=== PATIENT | male | born 1985 | race Caucasian/White ===

== ENCOUNTER 2023-02-08 07:19 | Outpatient (CLI) | payer OTHER ==
[2023-02-08 12:44] LABS: BASOPHILS # (AUTO) 0.1 10^3/uL (0.0-0.1); BASOPHILS % (AUTO) 1.1 %; EOSINOPHILS # (AUTO) 0.3 10^3/uL (0.0-0.7); EOSINOPHILS % (AUTO) 3.6 %; HCT - HEMATOCRIT 42.5 % (42.0-52.0); HGB - HEMOGLOBIN 14.2 g/dL (14.0-18.0); LYMPHOCYTES # (AUTO) 2.1 10^3/uL (1.5-3.5); LYMPHOCYTES % (AUTO) 27.8 %; MEAN CORPUSCULAR HEMOGLOBIN 30.1 pg (27.0-31.0); MEAN CORPUSCULAR HGB CONC 33.4 g/dL (32.0-36.0); MEAN CORPUSCULAR VOLUME 90.2 fL (80.0-94.0); MONOCYTES # (AUTO) 0.7 10^3/uL (0.0-1.0); MONOCYTES % (AUTO) 9.3 %; NEUTROPHILS # (AUTO) 4.4 10^3/uL (1.5-6.6); NEUTROPHILS % (AUTO) 58.1 %; PLT - PLATELET COUNT 304 10^3/uL (130-450); RED BLOOD COUNT 4.71 10^6/uL (4.70-6.10); RED CELL DISTRIBUTION WIDTH 11.8 % (12.0-15.0); WHITE BLOOD COUNT 7.6 x10^3/uL (4.8-10.8)
[2023-02-08 13:26] LABS: % IRON SATURATION 31 % (20-50); ALBUMIN/GLOBULIN RATIO 1.9 (1.0-2.2); ALKALINE PHOSPHATASE 53 IU/L (42-121); ALT ALANINE AMINOTRANSFERASE 12 IU/L (10-60); AST ASPARTATE AMINOTRANSFERASE 18 IU/L (10-42); BILIRUBIN,TOTAL 0.7 mg/dL (0.2-1.0); BUN - BLOOD UREA NITROGEN 16 mg/dL (6-20); CALCIUM 10.1 mg/dL (8.5-10.3); CARBON DIOXIDE - CO2 30 mmol/L (21-32); CHLORIDE 102 mmol/L (101-111); CHOL/HDL RATIO 2.7 (<5.0); CHOLESTEROL 178 mg/dL; CREATININE 0.9 mg/dL (0.6-1.3); GFR - MDRD 95 (>89); GLUCOSE 96 mg/dL (74-104); HDL CHOLESTEROL 65 mg/dL; IRON 125 ug/dL (50-212); LDL CHOLESTEROL,CALCULATED 91 mg/dL; LDL/HDL RATIO 1.4 (<3.6); LIPASE 10 U/L (11-82); POTASSIUM 3.9 mmol/L (3.5-4.5); SODIUM 139 mmol/L (135-145); TOTAL IRON BINDING CAPACITY 399 ug/dL (250-450); TOTAL PROTEIN 7.6 g/dL (6.4-8.9); TRANSFERRIN 285 mg/dL (203-362); TRIGLYCERIDES 112 mg/dL (48-352); VLDL CHOLESTEROL 22 mg/dL
[2023-02-08 13:33] LABS: FERRITIN 22.4 ng/mL (23.9-336.2)
== END 2023-02-08 07:20 | disposition home or self-care (01) ==
LOC: LAB.N 07:19
PROVIDERS: ATTEND Physician Assistant
DX: R10.13 Epigastric pain (principal); Z13.220 Encounter for screening for lipoid disorders; D64.9 Anemia, unspecified
CPT/HCPCS: 36415; 80053; 80061; 82607; 82728; 82746; 83540; 83690; 83721; 84466; 85025

== ENCOUNTER 2023-04-11 06:56 | Outpatient (CLI) | payer OTHER ==
--- NOTE | 2023-04-11 12:23 | Ultrasound Report ---
PROCEDURE: Head or Neck Soft Tissue INDICATIONS: CERVICAL LYMPHADENOPATHY TECHNIQUE: Real-time scanning was performed of the thyroid gland, with image documentation. COMPARISON: None FINDINGS: Multiple grayscale and color Doppler images were acquired over the neck at the patient directed palpa ble area of concern. Over the anterior aspect of the right neck, the area of palpable concern correla rogelio with a normal appearing lymph node which measured 1.5 x 0.5 x 1.9 cm. This lymph node demonstrate s normal reniform morphology with central fatty hilum and uniform cortex. Otherwise, no adenopathy id entified. No suspicious mass lesion or fluid collection. Comparison images of the left neck demonstra rogelio similar appearing normal lymph nodes. IMPRESSION: Palpable area of concern in the right neck correlates with a normal lymph node. Reviewed by: Dick Rivera MD on 04/11/2023 12:21 PM PDT Approved by: Dick Rivera MD on 04/11/2023 12:21 PM PDT Station ID: [id number]
== END 2023-04-11 06:57 | disposition home or self-care (01) ==
LOC: DI 06:56
PROVIDERS: ATTEND Physician Assistant
DX: R59.0 Localized enlarged lymph nodes (principal)